=== PATIENT | male | born 1955 | race Caucasian/White ===

== ENCOUNTER → 2018-03-17 06:51 | Outpatient (CLI) | payer BC, SELFPAY ==
--- NOTE | 2018-03-17 | DI.US.S_ITS ---
PROCEDURE: US ABDOMEN LIMITED INDICATIONS: ADRENAL MASS TECHNIQUE: Real-time focused scanning was performed of the abdomen, with image documentation. COMPARISON: [facility], US, ABDOMEN COMPLETE, 12/03/2016, 8:43. [facility], CT, ABDOMEN W&WO CONTRAST, 12/12/2016, 11:07. FINDINGS: Limited exam demonstrating a rounded echogenic focus in the region of the right adrenal gland measuring 1.7 x 2.0 x 1.8 cm which may represent perinephric fat. The previously identified adrenal mass was larger and was hypoechoic. IMPRESSION: Echogenic focus in the region of the right adrenal gland which may represent perinephric fat rather than the previously visualized adrenal mass given the differences as above. Recommend repeat CT for further assessment, and more definitive comparison purposes. Dictated by: Leoncio SALAZAR Interpreted: Adryan Posey MD on 03/17/2018 at 9:04 Approved by: Adryan Posey M.D. on 03/17/2018 at 9:47
== END ==
PROVIDERS: PCP Internal Medicine; Visit Provider Internal Medicine
DX: E27.9 Disorder of adrenal gland, unspecified (principal)
CPT/HCPCS: 76705

== ENCOUNTER → 2023-04-16 | Outpatient (CLI) | payer MEDICARE, BC, SELFPAY ==
--- NOTE | 2023-04-16 12:13 | DI.CT.S_ITS ---
PROCEDURE: CT LUNG LOW DOSE SCREENING INDICATIONS: Nicotine dependence TECHNIQUE: Noncontrast 2.0-2.5 mm thick sections acquired from the pulmonary apices to the posterior costophrenic angles. 7 mm thick axial MIP, and 5 mm coronal and sagittal reformats were then acquired. For radiation dose reduction, the following was used: automated exposure control, adjustment of mA and/or kV according to patient size. COMPARISON: [facility], CT, ABDOMEN W&WO CONTRAST, 12/12/2016, 11:07. FINDINGS: Image quality: Diagnostic, given the low radiation dose technique. Lungs and pleura: No suspicious pulmonary nodules or mass lesions. Root airspace opacities. No pleural effusion or pneumothorax. Mediastinum: Heart size is normal. No pericardial effusion. No mediastinal adenopathy by size criteria. Thoracic aorta and central pulmonary arteries are normal in size. Esophagus is normal in caliber. No hiatal hernia. Bones and chest wall: No suspicious bony lesions. No vertebral body compression fractures. No axillary or supraclavicular adenopathy by size criteria. No thyroid nodules which require sonographic follow up, per consensus guidelines. Upper Abdomen: Right adrenal gland mass is redemonstrated and appears similar where visualized to the comparison CT dated December 12, 2016. Findings are most consistent with an adrenal myelolipoma. Visualized upper abdomen solid organs and bowel loops appear normal in the absence of contrast. IMPRESSION: No suspicious pulmonary nodules. LUNG-RADS 1; continued annual screening, if eligible. Clinically Significant Non-pulmonary Findings: None. Dictated by: Melissa Snider M.D. on 04/16/2023 at 14:14 Approved by: Melissa Snider M.D. on 04/16/2023 at 14:26
--- NOTE | 2023-04-16 12:13 | DI.CT.S_ITS ---
PROCEDURE: CT ABDOMEN ADRENAL PROTOCOL INDICATIONS: Adrenal mass TECHNIQUE: Noncontrast 3 mm thick sections acquired from the diaphragms to the iliac crests. After the administration of intravenous contrast, 3 mm thick venous-phase and 15-minute delayed images acquired from the diaphragms to the iliac crests. For radiation dose reduction, the following was used: automated exposure control, adjustment of mA and/or kV according to patient size. COMPARISON: [facility], CT, ABDOMEN W&WO CONTRAST, 12/12/2016, 11:07. FINDINGS: Image quality: Excellent. Lung bases: Stable 2-3 mm solid nodule, right lower lobe (series 6, image 8). Adrenal glands: Right adrenal mass measures 5.2 x 3.3 cm and contains macroscopic fat. This previously measured 4.9 x 2.9 cm in 2017. Solid organs: Liver is normal in size and enhancement. Gallbladder is unremarkable . Biliary system is non dilated. Pancreas enhances normally. Spleen is normal in size and enhancement. Kidneys are normal in size and enhancement. No hydronephrosis. Punctate, nonobstructing nephrolithiasis. Peritoneum and bowel: Unenhanced bowel loops are normal in caliber and wall thickness. No free fluid or air. Nodes and vessels: No retroperitoneal or mesenteric adenopathy by size criteria. Aorta and inferior vena cava are normal in size. Miscellaneous: No ventral hernias. Bones: No suspicious bony lesions. No vertebral body compression fractures. IMPRESSION: The right adrenal myelolipoma as demonstrated mild interval growth since 2017. Imaging characteristics are consistent with a benign myelolipoma. Dictated by: Pa Law M.D. on 04/16/2023 at 15:47 Approved by: Pa Law M.D. on 04/16/2023 at 15:50
[2023-04-16 12:41] LABS: Estimated Glomerular Filt Rate > 60 mL/min (>60)
== END ==
PROVIDERS: Radiology Diagnostic Radiology; PCP Internal Medicine; Referring Provider Student in an Organized Health Care Education/Training Program; Visit Provider Student in an Organized Health Care Education/Training Program
DX: E27.9 Disorder of adrenal gland, unspecified; Z12.2 Encounter for screening for malignant neoplasm of respiratory organs; D17.79 Benign lipomatous neoplasm of other sites; Z87.891 Personal history of nicotine dependence
CPT/HCPCS: 36415; 71271; 74170; 82565; Q9967

== ENCOUNTER → 2024-05-18 10:36 | Outpatient (CLI) | payer MEDICARE, BC, SELFPAY ==
[2024-05-18 12:00] LABS: Hemoglobin A1C% w Est Avg Glu 6.2 % (4.0-6.0)
[2024-05-18 12:17] LABS: Alanine Aminotransferase 50 IU/L (<50); Albumin 4.7 g/dL (3.5-5.0); Alkaline Phosphatase 63 U/L (38-126); Aspartate Aminotransferase 42 IU/L (17-59); BUN Creatinine Ratio 26.7 (6-22); Bilirubin Total 0.8 mg/dL (0.2-1.3); Blood Urea Nitrogen 20 mg/dL (9-20); Calcium 9.6 mg/dL (8.4-10.2); Carbon Dioxide 29 mmol/L (22-32); Chloride 101 mmol/L (98-107); Cholesterol 136 mg/dL (140-199); Estimated Glomerular Filt Rate > 60 mL/min (>60); Globulin 2.4 g/dL (1.7-4.1); Glucose 139 mg/dL (80-110); HDL Cholesterol 41 mg/dL (40-60); HEMOLYSIS < 15 (0-50); LDL Cholesterol Calculated 70 mg/dL (<100); Potassium 4.1 mmol/L (3.4-5.1); Sodium 137 mmol/L (137-145); Total Protein 7.1 g/dL (6.3-8.2); Triglycerides 126 mg/dL (35-150)
[2024-05-18 14:00] LABS: Creatinine Urine Random 49.78 mg/dL
[2024-05-18 14:06] LABS: Microalbumin Urine Random 0.7 mg/dL (0-1.6)
== END ==
PROVIDERS: PCP Family Medicine; Referring Provider Family Medicine; Visit Provider Family Medicine
DX: R73.03 Prediabetes (principal); I10 Essential (primary) hypertension
CPT/HCPCS: 36415; 80053; 80061; 82043; 82570; 83036

== ENCOUNTER → 2024-05-24 | Outpatient (CLI) | payer MEDICARE, BC, SELFPAY ==
--- NOTE | 2024-05-24 12:16 | DI.CT.S_ITS ---
PROCEDURE: CT LUNG LOW DOSE SCREENING INDICATIONS: hx of tobacco TECHNIQUE: Noncontrast 2.0-2.5 mm thick sections acquired from the pulmonary apices to the posterior costophrenic angles. 7 mm thick axial MIP, and 5 mm coronal and sagittal reformats were then acquired. For radiation dose reduction, the following was used: automated exposure control, adjustment of mA and/or kV according to patient size. COMPARISON: [facility], CT, CT LUNG LOW DOSE SCREENING, 04/16/2023, 12:58. FINDINGS: Image quality: Diagnostic. Lower Neck: No enlarged lymph nodes. Thyroid: No thyroid nodules which require sonographic follow up, per consensus guidelines. Axillae: No enlarged lymph nodes. Chest Wall: Unremarkable. Bones: Unremarkable. Lungs and Pleura: No pneumothorax or pleural effusions. Stable 3 millimeter juxtapleural nodule, right lower lobe. Calcified granuloma in the right upper lobe. Heart: Heart size is normal. No pericardial effusion. Three-vessel coronary artery calcifications. Thoracic Vessels: The aorta and pulmonary arteries demonstrate normal size. Mediastinum and Jennyfer: No enlarged lymph nodes. Esophagus: No wall thickening. No hiatal hernia. Upper Abdomen: Stable 5.2 centimeter benign right adrenal myelolipoma. IMPRESSION: No suspicious pulmonary nodules. LUNG-RADS 2; continued annual screening, if eligible. Clinically Significant Non-pulmonary Findings: Marked coronary artery calcifications for age. Correlate with risk factors and advise counseling. Dictated by: Pa Law M.D. on 05/24/2024 at 14:53 Approved by: Pa Law M.D. on 05/24/2024 at 14:55
--- NOTE | 2024-05-24 13:46 | DI.ECHO.S_ITS ---
[facility]+ [facility] : : [address] : : [place] : : [id number] : : Phone: [phone] Echocardiogram Report + + :Name: ARI MATAMOROS Study Date: 05/24/2024 Height: 70 in : :Hospital ReadingLocation: Weight: 250 lb : : Gender: Male BSA: 2.3 m2 : :: 1955 Age: 68 yrs BP: 152/85 mmHg: :Reason For Study: HYPERTENSION : :Ordering Physician: WESLEY, : :QUYEN Performed By: Joseph Auguste : :Referring: QUYEN OLSON : + + Interpretation Summary Normal LV size and function. LVEF is 55-60% Borderline RV size. Normal LV systolic function. Normal atrial sizes. No significant valvular pathology is noted. Ascending aorta is measured at 4.3cm Other findings as below. No previous echo images are available for comparison. Consider dedicated CTA chest for further assessment of patient's aorta. Procedure: A two-dimensional transthoracic echocardiogram with color flow and Doppler was performed. The study quality was technically good. There is no prior echocardiogram noted for this patient. The patient was in normal sinus rhythm during the exam. Left Ventricle: The left ventricle is normal in size. There is normal left ventricular wall thickness. There is no ventricular septal defect visualized. The ejection fraction is estimated to be 55-60%. There are no focal wall motion abnormalities. Diastolic parameters suggest probable normal left ventricular diastolic function and normal filling pressures. Right Ventricle: The right ventricle is borderline dilated. The right ventricular systolic function is normal. Atria: The left atrial size is normal. Right atrial size is normal. There is no Doppler evidence for an interatrial shunt. Mitral Valve: There is mild mitral annular calcification. The mitral valve leaflets appear normal. There is no evidence of stenosis, fluttering, or prolapse. There is trace mitral regurgitation. Aortic Valve: The aortic valve is trileaflet. The aortic valve is mildly calcified. No aortic regurgitation is present. Tricuspid Valve: The tricuspid valve leaflets are thin and pliable. There is trace tricuspid regurgitation. Pulmonic Valve: The pulmonic valve leaflets are thin and pliable; valve motion is normal. There is trace pulmonic regurgitation. Great Vessels: The aortic root is mildly dilated. The ascending aorta is mildly enlarged. The pulmonary artery is normal size. The IVC is of normal diameter and collapses greater than 50% with a sniff. This suggests a low right atrial pressure of 3 mm Hg. Pericardium/ Pleura There is no pericardial effusion. There is no pleural effusion. MMode/2D Measurements & Calculations LVIDd: 5.3 cm LVOT diam: 2.3 cm LVIDs: 3.9 cm Ao root diam: 4.1 cm FS: 25.3 % asc Aorta Diam: 4.3 cm EPSS: 0.46 cm Ao Arch Diam (Prox Trans): 2.3 cm IVSd: 1.1 cm LVPWd: 1.0 cm LV phillips. diameter/BSA (cm/m^2): 2.3 LV sys. diameter/BSA (cm/m^2): 1.7 LA A2 area: 21.5 cm2 RA long axis: 4.3 cm LA A4 area: 20.8 cm2 RA area: 12.3 cm2 LA length (vol): 5.9 cm RA vol: 29.7 ml LA vol: 63.9 ml RA : 12.9 ml/m2 LA vol index: 27.8 ml/m2 IVC diam: 1.7 cm RVD1 (basal): 4.0 cm RVD2 (mid): 3.5 cm TAPSE: 2.6 cm Doppler Measurements & Calculations Ao V2 max: 175.8 cm/sec LVOT Max [place]: 133.8 cm/sec Ao V2 mean: 124.1 cm/sec LV V1 max P.2 mmHg Ao max P.4 mmHg LV V1 VTI: 27.5 cm Ao mean P.7 mmHg NICK(I,D): 2.9 cm2 Ao V2 VTI: 38.3 cm NICK(V,D): 3.1 cm2 sev ratio: 0.72 NICK indexed to BSA (cm^2/m^2): 1.3 MV E max [place]: 87.0 cm/sec TR max [place]: 293.4 cm/sec MV A max [place]: 84.9 cm/sec TR max P.4 mmHg MV E/A: 1.0 PA V2 max: 77.3 cm/sec Med Peak E' [place]: 5.5 cm/sec PA V2 mean: 53.5 cm/sec E/E' med: 16.0 PA mean P.3 mmHg Lat Peak E' [place]: 9.7 cm/sec PA pr(Accel): 25.9 mmHg E/E' lat: 8.9 E/e' average: 12.4 MV dec time: 0.[address] [facility] [facility] 111.7 ml Reading Physician:04:03 PM
== END ==
LOC: ECHO 12:15
PROVIDERS: PCP Family Medicine; Referring Provider Family Medicine; Visit Provider Family Medicine
DX: Z87.891 Personal history of nicotine dependence (principal); Z12.2 Encounter for screening for malignant neoplasm of respiratory organs; R91.1 Solitary pulmonary nodule; D35.01 Benign neoplasm of right adrenal gland; I25.10 Atherosclerotic heart disease of native coronary artery without angina pectoris; I34.81 Nonrheumatic mitral (valve) annulus calcification; I10 Essential (primary) hypertension; I77.810 Thoracic aortic ectasia; I77.89 Other specified disorders of arteries and arterioles
CPT/HCPCS: 71271; 93307

== ENCOUNTER → 2024-07-01 09:17 | Outpatient (CLI) | payer MEDICARE, BC, SELFPAY ==
[2024-07-01 10:16] LABS: BUN Creatinine Ratio 26.5 (6-22); Blood Urea Nitrogen 22 mg/dL (9-20); Calcium 9.6 mg/dL (8.4-10.2); Carbon Dioxide 30 mmol/L (22-32); Chloride 96 mmol/L (98-107); Estimated Glomerular Filt Rate > 60 mL/min (>60); Glucose 152 mg/dL (80-110); HEMOLYSIS < 15 (0-50); Potassium 3.8 mmol/L (3.4-5.1); Sodium 138 mmol/L (137-145)
== END ==
LOC: LAB 09:17
PROVIDERS: PCP Family Medicine; Referring Provider Family Medicine; Visit Provider Family Medicine
DX: I10 Essential (primary) hypertension (principal)
CPT/HCPCS: 36415; 80048

== ENCOUNTER → 2025-02-02 08:33 | Outpatient (CLI) | payer MEDICARE, BC, SELFPAY ==
[2025-02-02 10:12] LABS: Hemoglobin A1C% w Est Avg Glu 6.3 % (4.0-6.0)
[2025-02-02 10:33] LABS: Alanine Aminotransferase 32 IU/L (<50); Albumin 4.7 g/dL (3.5-5.0); Albumin Globulin Ratio 1.8 (1.0-2.8); Alkaline Phosphatase 70 U/L (38-126); Blood Urea Nitrogen 17 mg/dL (9-20); Calcium 9.5 mg/dL (8.4-10.2); Carbon Dioxide 26 mmol/L (22-32); Chloride 101 mmol/L (98-107); Cholesterol 126 mg/dL (140-199); Estimated Glomerular Filt Rate > 60 mL/min (>60); Globulin 2.6 g/dL (1.7-4.1); Glucose 128 mg/dL (70-99); HDL Cholesterol 44 mg/dL (40-60); HEMOLYSIS < 15 (0-50); Potassium 4.3 mmol/L (3.4-5.1); Sodium 138 mmol/L (137-145); Total Protein 7.3 g/dL (6.3-8.2); Triglycerides 129 mg/dL (35-150)
== END ==
PROVIDERS: PCP Family Medicine; Referring Provider Family Medicine; Visit Provider Family Medicine
DX: R73.03 Prediabetes (principal); I10 Essential (primary) hypertension
CPT/HCPCS: 36415; 80053; 80061; 83036

== ENCOUNTER → 2025-03-21 07:56 | Outpatient (CLI) | payer MEDICARE, BC, SELFPAY ==
--- NOTE | 2025-03-21 07:58 | DI.CT.S_ITS ---
PROCEDURE: CT ANGIO ABD AORTA RUNOFF INDICATIONS: Atherosclerosis of [place] arteries of bilateral TECHNIQUE: After the administration of intravenous contrast, 2.5 mm sections acquired from T12 to the feet, with optional delayed image acquisition from the knees to the feet. 3-dimensional maximum intensity projection (MIP) coronal and sagittal reformats, and/or 3-dimensional volume rendering reformatting was then performed. For radiation dose reduction, the following was used: automated exposure control. COMPARISON: [facility], CT, CT ABDOMEN ADRENAL PROTOCOL, 04/16/2023, 12:58. FINDINGS: Image Quality: Diagnostic. Abdominal aorta: Mild atherosclerotic disease. Splanchnic vessels: Replaced right common hepatic artery from the SMA. Mild atherosclerotic disease. Two right renal arteries. Right lower extremity: Tandem 25-50% narrowing of the proximal right external iliac artery and common femoral artery. Is diminutive superficial femoral artery, with tandem less than 25% narrowing proximally. There is approximately 11 cm of occlusion of the mid to distal superficial femoral artery, with reconstitution of the proximal popliteal artery from deep perforating vessels. Three-vessel runoff. Left lower extremity: Tandem, less than 25% narrowing of the external iliac artery and common femoral artery. Tandem, short segments of 25-50% narrowing of the proximal superficial femoral artery. Short segments of tandem near complete occlusion of the mid to distal femoral artery . Three-vessel runoff. Lower Chest: No significant findings. ABDOMEN: Liver: No solid mass. Gallbladder: No radiopaque gallstones or wall thickening. Biliary ducts: No biliary dilation. Pancreas: No ductal dilation. Spleen: Size is within normal limits. Adrenal Glands: 4.4 cm right adrenal lesion with macroscopic fat, consistent with a benign angiomyolipoma. This previously measured 4.2 cm in 2022. Kidneys and Ureters: No hydronephrosis. No solid mass. No complex renal cystic lesion which requires follow up. Punctate nonobstructing left-sided nephrolithiasis. Stomach and Bowel: Normal colonic caliber, without significant wall thickening. Colonic diverticulosis without evidence of diverticulitis. Peritoneum: No abnormal intraperitoneal fluid. No free air. Ventral Wall: No hernia. Abdominal Nodes: No retroperitoneal or mesenteric adenopathy by size criteria. Vessels: Aorta and inferior vena cava are normal in size. PELVIS: Pelvic Organs: Unremarkable. Bladder: Unremarkable. Pelvic Nodes: No enlarged lymph nodes. Miscellaneous: Small left indirect inguinal hernia containing fat.. Bones: No aggressive osseous abnormality. IMPRESSION: Significant superficial femoral atherosclerosis: 11 cm segment of occlusion of the mid superficial femoral artery, with reconstitution at the proximal popliteal artery. Short segments of tandem, near occlusion of the mid to distal left superficial femoral artery. Growing right adrenal myelolipoma. Consider surgical referral due to risk of bleeding. Dictated by: Pa Law M.D. on 03/21/2025 at 9:55 Approved by: Pa Law M.D. on 03/21/2025 at 10:02
[2025-03-21 08:29] LABS: Estimated Glomerular Filt Rate > 60 mL/min (>60)
== END ==
PROVIDERS: PCP Family Medicine; Referring Provider Family Medicine; Visit Provider Internal Medicine Cardiovascular Disease
DX: I70.213 Atherosclerosis of native arteries of extremities with intermittent claudication, bilateral legs (principal); D17.5 Benign lipomatous neoplasm of intra-abdominal organs
CPT/HCPCS: 36415; 75635; 82565; Q9967